=== PATIENT | female | born 1960 | race Caucasian/White ===

== ENCOUNTER 2023-04-30 13:32 | Emergency (ER) | payer OTHER, SELFPAY ==
[2023-04-30 13:57] VITALS: BP 166/82; PULSE 97; RESP 20; TEMP 36.4; O2SAT 96; BMI 31.7
[2023-04-30 15:34] LABS: Strep Grp A by PCR Rapid Negative (Negative)
[2023-04-30 15:48] LABS: Influenza A - CEPHEID Flu A NEGATIVE (NEGATIVE); Influenza B - CEPHEID Flu B NEGATIVE (NEGATIVE); Respiratory Syncytial Virus Negative (Negative)
[2023-04-30 16:00] LABS: COVID-19 CEPHEID 4-PLEX PCR Negative (Negative)
--- NOTE | 2023-04-30 17:40 | DI.RAD.S_ITS ---
PROCEDURE: XR CHEST 2V INDICATIONS: chronic cough/phlegm TECHNIQUE: 2 views of the chest were acquired. COMPARISON: None. FINDINGS: Surgical changes and devices: None. Lungs and pleura: Lungs are clear. No pleural effusions or pneumothorax. Mediastinum: Mediastinal contours are normal. Heart size is normal. Bones and chest wall: No suspicious bony abnormalities. Soft tissues appear unremarkable. IMPRESSION: No acute process. Dictated by: Alec Blackwood M.D. on 04/30/2023 at 18:12 Approved by: Alec Blackwood M.D. on 04/30/2023 at 18:12
--- NOTE | 2023-04-30 17:41 | ED_ITS ---
HPI - URI/Sore Throat <Vanessa Fields PA-C - Last Filed: 04/30/23 18:27> General Chief Complaint: Upper Respiratory Symptoms Stated Complaint: postnasal drip/chest congestion T-7 Time Seen by Provider: 04/30/23 17:40 Source: patient Mode of arrival: Ambulatory History of Present Illness HPI Narrative: Patient is a 62-year-old female who denies significant past medical history. She states she has had congestion which she describes as phlegm stuck in her upper chest that she can not clear despite coughing, trying Sudafed, guaifenesin. She does endorse seasonal allergy but does not taken any medications for these. She endorses acid reflux which is occurring more frequently than when she was younger, but does not taken any medication for this. She also complains of a sore throat. She denies fever chills, chest pain, abdominal pain. Sensation of phlegm is worse when she 1st wakes in the morning. She does not smoke cigarettes. Related Data Allergies Allergy/AdvReac Type Severity Reaction Status Date / Time Sulfa (Sulfonamide Allergy Rash Verified 04/30/23 14:01 Antibiotics) Review of Systems <Vanessa Fields PA-C - Last Filed: 04/30/23 18:27> Review of Systems ROS Unobtainable: All systems reviewed & are unremarkable except as noted in HPI and below Patient History <Vanessa Fields PA-C - Last Filed: 04/30/23 18:27> Social History Smoking Status: Never smoker Smoking Status: Never smoker alcohol intake frequency: a few times a week Substance Use Type: marijuana Exam <Vanessa Fields PA-C - Last Filed: 04/30/23 18:27> Narrative Exam Narrative: GENERAL: 62 year old patient appears stated age. Well-developed patient, in no distress. NEURO: AOx3. HEAD: Atraumatic. Normocephalic. EYES: Pupils equal round and reactive. Extraocular motions intact. No scleral icterus. No injection or drainage. ENT: Nose without bleeding or purulent drainage. Throat without erythema, tonsillar hypertrophy or exudate. Airway patent. TMs clear bilaterally. NECK: Trachea midline. Non tender CARDIOVASCULAR: Regular rate and rhythm without murmurs, gallops, or rubs. RESPIRATORY: Clear to auscultation. Breath sounds equal bilaterally. No wheezes, rales, or rhonchi. SKIN: No rash or erythema of visible areas Initial Vital Signs Initial Vital Signs: Vital Signs Temperature 97.6 F 04/30/23 13:57 Pulse Rate 97 H 04/30/23 13:57 Respiratory Rate 20 04/30/23 13:57 Blood Pressure 166/82 H 04/30/23 13:57 Pulse Oximetry 96 04/30/23 13:57 Oxygen Delivery Method Room Air 04/30/23 13:57 <Sindhu Elder DO - Last Filed: 04/30/23 19:36> Initial Vital Signs Initial Vital Signs: Vital Signs Temperature 97.6 F 04/30/23 13:57 Pulse Rate 97 H 04/30/23 13:57 Respiratory Rate 20 04/30/23 13:57 Blood Pressure 166/82 H 04/30/23 13:57 Pulse Oximetry 96 04/30/23 13:57 Oxygen Delivery Method Room Air 04/30/23 13:57 Course <Vanessa Fields PA-C - Last Filed: 04/30/23 18:27> Orders Ordered: ED Orders 04/30/23 14:09 Covid-19 + FLU A/B + RSV - PCR Stat Strep Grp A by PCR Rapid Stat 04/30/23 14:36 Throat Culture Stat 04/30/23 17:40 XR chest 2V Stat Vital Signs Vital signs: Vital Signs - 8 hr 04/30/23 13:57 Temperature 97.6 F Pulse Rate 97 H Respiratory Rate 20 Blood Pressure 166/82 H Pulse Oximetry 96 Oxygen Delivery Method Room Air <Sindhu Elder DO - Last Filed: 04/30/23 19:36> Orders Ordered: ED Orders 04/30/23 14:09 Covid-19 + FLU A/B + RSV - PCR Stat Strep Grp A by PCR Rapid Stat 04/30/23 14:36 Throat Culture Stat 04/30/23 17:40 XR chest 2V Stat Vital Signs Vital signs: Vital Signs - 8 hr 04/30/23 13:57 Temperature 97.6 F Pulse Rate 97 H Respiratory Rate 20 Blood Pressure 166/82 H Pulse Oximetry 96 Oxygen Delivery Method Room Air MDM - URI/Sore Throat <Vanessa Fields PA-C - Last Filed: 04/30/23 18:27> Lab Data Labs: Lab Results 04/30/23 04/30/23 Range/Units 14:09 14:09 SARS-CoV-2 (PCR) Negative (Negative) Influenza A (RT-PCR) Flu a negative (NEGATIVE) Influenza B (RT-PCR) Flu b negative (NEGATIVE) RSV (PCR) Negative (Negative) Group A Strep (PCR) Negative (Negative) MDM Narrative Medical decision making narrative: Multiple etiologies for patient's symptoms considered including, but not limited to: Viral upper respiratory infection, COVID, strep throat, postnasal drip, GERD, seasonal allergies, asthma. Respiratory quad swab and strep throat both negative today. Chest x-ray clear. Suspect postnasal drip and GERD as source of her congestion. Recommend buying the following medications [id number]; omeprazole 20 mg daily to be taken 30 minutes before breakfast on an empty stomach, and Zyrtec 10 mg daily. Would recommend taking these consistently for several weeks to see if they help. Return if shortness of breath, difficulty breathing or other concerns. Patient's symptoms improved over duration of stay with above-stated therapies. Findings and discharge diagnosis discussed with patient/family followed by verbalization of understanding Return precautions discussed with patient/family whom verbalize understanding of diagnosis and plan <Sindhu Elder, - Last Filed: 04/30/23 19:36> Lab Data Labs: Lab Results 04/30/23 04/30/23 Range/Units 14:09 14:09 SARS-CoV-2 (PCR) Negative (Negative) Influenza A (RT-PCR) Flu a negative (NEGATIVE) Influenza B (RT-PCR) Flu b negative (NEGATIVE) RSV (PCR) Negative (Negative) Group A Strep (PCR) Negative (Negative) Discharge Plan Departure Patient Disposition: Home Clinical Impression: PND (post-nasal drip), GERD (gastroesophageal reflux disease) Instructions: DI for Gastroesophageal Reflux Disease (GERD) Activity Restrictions/Additional Instructions: *You have been diagnosed with postnasal drip and GERD. Recommend buying the following medications [id number]; omeprazole 20 mg daily to be taken 30 minutes before breakfast on an empty stomach, and Zyrtec 10 mg daily. Would recommend taking these consistently for several weeks to see if they help. Return if shortness of breath, difficulty breathing or other concerns. *What to do: *Please continue to take your regular medications as directed. [ ] New medication prescriptions sent to your pharmacy: [ ] [ ] New medication written as a paper prescription [x ] No new medications given *Please follow up with your primary care provider in 2-3 days, call for an appointment. Let them know you were seen in the Emergency Department and that we ask that you be seen in follow up. We will electronically transmit a record of today's note if your PCP is in our system *If you do not have a primary care provider please contact the [facility] Resource line at [phone]. They will ask some questions about your medical history and help get you set up with a doctor in the community. *Return to Emergency Department if you should have any new, worsening or concerning symptoms, such as [fever greater than 101 F, shaking chills, worsening pain, persistent vomiting or other bothersome symptoms] Referrals: Mello Dugan PA-C [Primary Care Provider] - Stand Alone Forms: Patient Portal/API <Sindhu Elder DO - Last Filed: 04/30/23 19:36> Cosign ED Attending Reinaature Attestation: I was immediately available in the department for consultation. Documentation has been reviewed.
== END 2023-04-30 18:35 | disposition home or self-care (01) ==
PROVIDERS: Emergency Provider Physician Assistant; PCP Physician Assistant
DX: R09.82 Postnasal drip (principal); K21.9 Gastro-esophageal reflux disease without esophagitis
CPT/HCPCS: 0241U; 71046; 87070; 87077; 87147; 87651; 99281; 99283